=== PATIENT | female | born 1955 | race Two or more races ===

== ENCOUNTER 2025-05-08 08:06 | Outpatient (CLI) | payer OTHER ==
--- NOTE | 2025-05-08 12:32 | DVH ---
CLINICAL INFORMATION: LEFT KNEE REPLACEMENT. TECHNIQUE: Following the intravenous administration of 23 mCi technetium 99m-MDP, 3-phase bone scan was performed of both knees. Immediate flow images were obtained of both knees in the anterior and po sterior projections. Blood pool phase images were obtained in the anterior, posterior, and right and left lateral projections. 3 hour delayed images were obtained in the anterior, posterior, and right a nd left lateral projections. COMPARISON: Radiographs dated 01/18/2025. FINDINGS: There is slightly increased uptake adjacent to the left knee prosthesis on the immediate fl ow images compared to the right knee prosthesis particularly demonstrated on the anterior projection images. Blood pool and delayed images also demonstrate increased uptake adjacent to the left knee pro sthesis compared to the right. IMPRESSION: Asymmetric increased uptake adjacent to the left knee prosthesis compared to the right on all 3 phase s. Findings may be seen with prosthesis failure, including infection or aseptic loosening. Correlate with clinical findings.
== END 2025-05-08 17:00 | disposition home or self-care (01) ==
LOC: XYW 08:06
PROVIDERS: ATTEND Physician Assistant
DX: Z96.652 Presence of left artificial knee joint (principal)
CPT/HCPCS: 78315; A9503